=== PATIENT | female | born 1965 | race Caucasian/White ===

== ENCOUNTER 2018-07-17 13:50 | Emergency (ER) | payer OTHER ==
[~2018-07-17] VITALS: Wt 63.6 kg
[~2018-07-17 13:50] MED LIST: ALBU8.5H8 INH; CLOT30CR24 TOP; IBUP-1542 PO; LORA-441 PO; ORPH100T PO
[2018-07-17 14:02] VITALS: BP 109/57; PULSE 66; RESP 20
[2018-07-17] MEDS ORDERED: IBUPROFEN 800 MG TAB PO ONE (16:00)
[2018-07-17] MEDS ORDERED: IBUP-1542 PO (16:27)
--- NOTE | 2018-07-17 16:48 | ERD ---
ER Documentation Chief Complaint Chief Complaint r. elbow pain s/p fall 1 wk ago HPI Patient is a 52-year-old female with no medical problems who presents with right-sided elbow pain. The patient had a fall 1 week ago while she was drinking with friends. She does not remember because she had had 3 alcoholic drinks at night. She believes she may have landed on her outstretched right hand. She tried ibuprofen. There is bruising to the medial aspect of the right elbow. She is right-handed. Her primary doctor is Dr. Yates. ROS All systems reviewed and are negative except as per history of present illness. Medications Home Meds Active Scripts Ibuprofen* (Motrin*) 600 Mg Tab, 600 MG PO Q6H PRN for PAIN AND OR ELEVATED TEMP, #30 TAB Prov:EUNICE LIU MD 07/17/18 Lorazepam* (Ativan*) 0.5 Mg Tablet, 0.5 MG PO Q8H PRN for ANXIETY, #15 TAB Prov:YVONNE DELGADO MD 01/23/16 Clotrimazole* (Clotrimazole* AF) 1% - 30 Gm Cream.gm., 1 APPLIC TOP BID for 7 Days, #1 TUB Prov:YVONNE DELGADO MD 01/23/16 Albuterol Sulfate* (Proair HFA*) 8.5 Gm Hfa.aer.ad, 2 PUFF INH Q6H PRN for COUGH , #1 INHALER Prov:YVONNE DELGADO MD 01/23/16 Orphenadrine Citrate (Norflex) 100 Mg Tablet.sa, 100 MG PO BID for 5 Days, TAB.SA Prov:NAKIA HOLLINS 07/30/15 Ibuprofen* (Motrin*) 600 Mg Tab, 600 MG PO Q6, #30 TAB Prov:NAKIA HOLLINS 07/30/15 Allergies Allergies: Coded Allergies: No Known Allergy (Unverified , 07/17/18) PMhx/Soc Medical and Surgical Hx: pt denies Medical Hx, pt denies Surgical Hx Hx Alcohol Use: Yes (social) Hx Substance Use: No Hx Tobacco Use: Yes (social) Smoking Status: Never smoker FmHx Family History: diabetes Physical Exam Vitals Vital Signs Date Temp Pulse Resp B/P (MAP) Pulse Ox O2 O2 Flow FiO2 Time Delivery Rate 07/17/18 98.1 66 20 109/57 97 14:02 (74) Physical Exam Const: No acute distress Head: Atraumatic Eyes: Normal Conjunctiva ENT: Normal External Ears, Nose and Mouth. Neck: Full range of motion. No meningismus. Resp: Clear to auscultation bilaterally Cardio: Regular rate and rhythm, no murmurs Abd: Soft, non tender, non distended. Normal bowel sounds Skin: No petechiae or rashes Back: No midline or flank tenderness Ext: Bruising to the right medial elbow with tenderness over the medial epicondyle, full range of motion, no swelling Neur: Awake and alert Psych: Normal Mood and Affect Results 24 hrs Current Medications Medications Dose Sig/Eusebia Start Time Status Last (Trade) Ordered Route PRN Stop Time Admin Dose Reason Admin Ibuprofen 800 mg ONCE ONCE 07/17/18 DC 07/17/18 (Motrin) PO 16:00 15:55 07/17/18 16:01 Procedures/MDM X-ray Elbow 3V Interpreted by me: Fat Pads: Normal Bones: No fracture Joints: No dislocation Foreign body: None Patient is a 52-year-old female who presents with right-sided elbow pain. X-ray was negative for fracture or dislocation. I believe this is likely an elbow co ntusion. The patient will be discharged with a prescription for ibuprofen. She can return for any worsening symptoms. She was offered an Juan wrap but she refused. Departure Diagnosis: Primary Impression: Elbow pain Laterality: right Qualified Codes: M25.521 - Pain in right elbow Condition: Fair Patient Instructions: Contusion, Elbow Additional Instructions: Call your primary care doctor TOMORROW for an appointment during the next 1 WEEK.Tell the confidential secretary that you were referred from this facility.See the doctor sooner or return here if your condition worsens before your appointment time. EUNICE LIU MD Jul 17, 2018 16:48
== END 2018-07-17 16:35 | disposition home or self-care (01) ==
LOC: FTE 13:50
DX: S50.01XA Contusion of right elbow, initial encounter (principal); W18.39XA Other fall on same level, initial encounter; Y92.9 Unspecified place or not applicable
CPT/HCPCS: 73080; Z7610